=== PATIENT | female | born 1965 | race American Indian/Alaskan Native ===

== ENCOUNTER 2018-06-06 | Inpatient (IN) | payer MEDICAID | END 2018-06-11 13:00 | disposition home or self-care (01) | DRG 745 | PROVIDERS: ADMIT Psychiatry & Neurology Psychiatry | PROC: HZ2ZZZZ Detoxification Services for Substance Abuse Treatment (ICD-10-PCS; principal; 2018-06-06) | PROC: HZ59ZZZ Individual Psychotherapy for Substance Abuse Treatment, Supportive (ICD-10-PCS; 2018-06-06) | PROC: GZ3ZZZZ Medication Management (ICD-10-PCS; 2018-06-06) | PROC: HZ80ZZZ Medication Management for Substance Abuse Treatment, Nicotine Replacement (ICD-10-PCS; 2018-06-06) | PROC: HZ46ZZZ Group Counseling for Substance Abuse Treatment, Psychoeducation (ICD-10-PCS; 2018-06-06) ==